=== PATIENT | female | born 1960 | race African-American/Black ===

== ENCOUNTER 2017-02-05 06:41 | Emergency (ER) | payer SELFPAY ==
[~2017-02-05] VITALS: Ht 160 cm; Wt 54.0 kg
[2017-02-05 08:13] LABS: BASOPHILS % 0.4 % (0.0-2.0); EOSINOPHILS % 0.2 % (0.0-5.0); HEMATOCRIT. 41.1 % (36.0-48.0); HEMOGLOBIN. 14.1 g/dL (12.0-16.0); LYMPHOCYTES % 10.4 % (20.0-50.0); MEAN CORPUSCULAR HEMOGLOBIN 32.4 pg (28.0-32.0); MEAN CORPUSCULAR VOLUME 94.4 fL (81.0-99.0); MEAN PLATELET VOLUME 7.3 fl (7.4-10.4); MONOCYTES % 3.6 % (2.0-8.0); NEUTROPHILS % 85.4 % (40.0-76.0); PLATELET 291 x1000/uL (130-400); RED BLOOD CELL COUNT 4.35 mill/uL (4.2-5.4); RED CELL DISTRIBUTION WIDTH 13.3 % (11.6-14.6)
[2017-02-05 08:22] LABS: GLUCOSE URINE TRACE (NEGATIVE); KETONES URINE NEGATIVE (NEGATIVE); LEUKOCYTE ESTERASE URINE 2+ (NEGATIVE); NITRITE URINE POSITIVE (NEGATIVE); OCCULT BLOOD URINE NEGATIVE (NEGATIVE); PROTEIN URINE 1+ (NEGATIVE); SPECIFIC GRAVITY URINE 1.016 (1.005-1.030); UROBILINOGEN URINE 0.2 E.U./dL (0.2-1.0)
[2017-02-05 08:31] LABS: AMMONIA 31 uMol/L (<32)
[2017-02-05 08:37] LABS: CARBON DIOXIDE 21 mEq/L (21-32); CHLORIDE 106 mEq/L (98-107); CREATINE KINASE 287 IU/L (26-192); ETHANOL BLOOD < 10 mg/dL
[2017-02-05 08:39] LABS: COLOR URINE YELLOW (YELLOW)
[2017-02-05 08:40] LABS: CLARITY URINE SL HAZY (CLEAR)
[2017-02-05 08:46] LABS: CARBAMAZEPINE < 0.5 ug/mL (4-12); PHENOBARBITAL < 2.1 ug/mL (15.0-40.0); PHENYTOIN < 0.4 ug/mL (10-20); VALPROIC ACID < 3.0 ug/mL (50-100)
[2017-02-05 08:48] LABS: *AMPHETAMINES SCREEN URINE NEGATIVE (NEGATIVE); *BARBITURATES SCREEN URINE NEGATIVE (NEGATIVE); *BENZODIAZEPINES SCREEN URINE PRESUMTIVE POSITIVE (NEGATIVE); *COCAINE SCREEN URINE NEGATIVE (NEGATIVE); CANNABINOID URINE SCREEN NEGATIVE (NEGATIVE); METHADONE URINE SCREEN NEGATIVE (NEGATIVE); OPIATES URINE SCREEN NEGATIVE (NEGATIVE); PHENCYCLIDINE URINE SCREEN NEGATIVE (NEGATIVE)
[2017-02-05] MEDS ORDERED: DEXAMETHASONE 10MG/ML 1ML VIAL IV ONE (09:00)
[2017-02-05] MEDS ORDERED: NICARDIPINE 50 MG in SODIUM CHLORIDE 0.9% 230 ML IV PRN ×2 (09:00→09:30)
[2017-02-05] MEDS ORDERED: SUCCINYLCHOLINE CHLORIDE 200MG/10ML VIAL IV ONE ×2 (09:00→12:21)
[2017-02-05] MEDS ORDERED: ETOMIDATE 2MG/ML 10ML VIAL IV ONE ×2 (09:00→12:21)
[2017-02-05] MEDS ORDERED: LABETALOL 5MG/ML SYR 20 MG/4 ML SYRINGE IV ONE (09:00)
[2017-02-05] MEDS ORDERED: MANNITOL 20% (20GM/100ML) BAG 500ML PREMIX IV ONE (09:00)
[2017-02-05] MEDS ORDERED: PHENYTOIN SODIUM 1,000 MG in SODIUM CHLORIDE 0.9% 100 ML IV ONE (09:15)
[2017-02-05 09:33] LABS: PARTIAL THROMBOPLASTIN TIME 24.2 sec (24.0-34.0); PROTHROMBIN TIME 10.3 sec
[2017-02-05] MEDS ORDERED: DOPAMINE 400MG PREMIX 250 ML IV ONE (10:28)
[2017-02-05 10:43] LABS: BG BASE EXCESS -10.3 mmol/L (-2.0-2.0); BG CARBOXYHEMOGLOBIN 1.2 % (0.5-1.5); BG DEOXYHEMOGLOBIN 3.1 % (0.0-5.0); BG HCO3 ACT 16.2 mmol/L (22.0-26.0); BG OXYGEN SATURATION 96.9 % (92.0-98.5); BG OXYHEMOGLOBIN 95.7 % (94.0-97.0); BG PCO2 37.9 mmHg (35.0-45.0); BG PH 7.249 (7.350-7.450); BG PO2 106.8 mmHg (75.0-100.0); BG SAMPLE SITE RIGHT BRACHIAL; BG TIDAL VOLUME(mL) 500 mL; BG TOTAL HEMOGLOBIN 13.1 g/dL (12.0-18.0); BG VENT MODE VENT - A/C; BG VENT RATE 16 set
[2017-02-05 10:45] VITALS: BP 89/63
== END 2017-02-05 11:06 | disposition short-term general hospital (02) ==
LOC: ER 06:41
DX: I61.9 Nontraumatic intracerebral hemorrhage, unspecified (principal); I95.9 Hypotension, unspecified; R56.9 Unspecified convulsions; R41.82 Altered mental status, unspecified
CPT/HCPCS: 31500; 31525; 36415; 36600; 70450; 71010; 80053; 80156; 80165; 80184; 80185; 80305; 81001; 82140; 82375; 82550; 82805; 83880; 84443; 84484; 85025; 85610; 85730; 93005; 96365; 96375; 99291; G0482; J0330; J1100; J1165; J1265; J3490; J7050; Z7610; 94002; A4315